=== PATIENT | female | born 1980 | race Caucasian/White ===

== ENCOUNTER 2017-08-24 03:10 | Inpatient (IN) | payer BC ==
[2017-08-24 04:38] LABS: BASOPHIL 0.9 % (0-2.0); EOSINOPHIL 0.7 % (0-4.5); MCH 25.2 pg (25.7-33.7); MCHC 32.8 g/dl (32.0-36.0); MEAN CELL VOLUME 76.6 fl (80-96); MEAN PLT VOLUME 11.1 fl (7.5-11.1); NEUTROPHILS 63.1 % (42.8-82.8); PLATELET COUNT 161 K/MM3 (134-434); RDW 15.4 % (11.6-15.6); WHITE BLOOD COUNT 7.9 K/mm3 (4.0-10.0)
[2017-08-24 04:43] VITALS: BMI 27.3
[2017-08-24 04:51] LABS: INR 0.89 (0.82-1.09); PROTHROMBIN TIME (PATIENT) 9.8 SEC (9.98-11.88)
[2017-08-24 04:58] LABS: ANION GAP 12 (8-16); CALCIUM 8.8 mg/dL (8.5-10.1); CO2 23 mmol/L (21-32); CREATININE 0.7 mg/dL (0.55-1.02); GLUCOSE,RANDOM 76 mg/dL (74-106)
[2017-08-24] MEDS ORDERED: DEXTROSE 5%-LACTATED RINGERS 1,000 ML IV ONE (06:12)
[2017-08-24] MEDS ORDERED: BUTORPHANOL TARTRATE 1 MG/ML VIAL IVPB ONE (06:30)
[2017-08-24] MEDS ORDERED: PROMETHAZINE HCL 25 MG/1 ML VIAL IVPB ONE (06:30)
[2017-08-24] MEDS: ELECTROLYTE-148 SOLN 1,000 ML IV SCH (08:30)
--- NOTE | 2017-08-24 08:41 | HP ---
Past Medical History - Primary Care Physician PCP:: Mor Hernández - Admission Chief Complaint: 37yo P1001 with at EGA 40w4d admitted with spontaneous labor. History of Present Illness: Painful contractions since 2am, no SROM, good FM, no VB AMA Multiple Sclerosis History Source: Patient, Medical Record Limitations to Obtaining History: No Limitations - Past Medical History BRANCH RETAIL EXECUTIVE: Yes: Multiple Sclerosis Cardiovascular: No: AFIB, Aneurysm, Aortic Insufficiency, Aortic Stenosis, CAD, CHF, Deep Vein Thrombosis, HTN, Hyperlipdemia, NC, Mitral Insufficiency, Mitral Stenosis, Murmur, Pulmonary Hypertension, Other Pulmonary: No: Asthma, Bronchitis, Cancer, COPD, O2 Dependent, Pneumonia, Previously Intubated, Pulmonary Embolus, Pulmonary Fibrosis, Sleep Apnea, Other Gastrointestinal: No: Ascites, Cancer, Constipation, Crohn's Disease, Diverticulitis, Diverticulosis, Esophageal Varices, Gastritis, GERD, GI Bleed, Hemorrhoids, Hiatal Hernia, Inflamatory Bowel Disease, Irritable Bowel Disease, Pancreatitis, Peptic Ulcer Disease, Ulcerative Colitis, Other Hepatobiliary: No: Cirrhosis, Cholelithiasis, Cholecystitis, Choledocholithiasis , Hepatitis A, Hepatitis B, Hepatitis C, Other Renal/: No: Renal Failure, Renal Inusuff, BPH, Cancer, Hematuria, Hemodialysis , Neurogenic Bladder, Renal Calculi, UTI, Other Reproductive: No: Ectopic , Endometriosis, Fibroids, PID, Polycystic Ovary Syndrome, Postmenopausal, Other ...: 4 ...Para: 1 () ...Term: 1 ...: 0 ...Spon : 2 ...Induced : 0 ...Multiple Gestation: 0 ...LMP: 11/13/16 ... Weeks Gestation by Dates: 40.4 ...EDC by Dates: 08/20/17 Heme/Onc: No: Anemia, B12 Deficiency, Bleeding Disorder, Cancer, Current Chemotherapy, Current Radiation Therapy, Hemochromatosis, Hypercoaguable State, Myeloproliferative Synd, Sickle Cell Disease, Sickle Cell Trait, Thrombocytopenia, Other Infectious Disease: No: AIDS, C-Diff, Herpes Zoster, HIV, MRSA, STD's, Tuberculosis, VREF, Other Psych: No: Addictions, Anxiety, Bipolar, Depression, Panic, Psychosis, Schizophrenia, Other Musculoskeletal: No: Bursitis, Chronic low back pain, Hemiparesis, Hemiplegia, Osteoarthritis, Paraplegia, Other Rheumatology: No: Fibromyalgia, Gout, Lupus, Rheumatoid Arthritis, Sarcoidosis, Vasculitis, Other ENT: No: Allergic Rhinitis, Sinusitis, Other Endocrine: No: [place]'s Disease, [place]'s Disease, Diabetes Insipidus, Diabetes Mellitus, Hyperparathyroidism, Hyperthyroidism, Hypothyroidism, Osteopenia, SIADH, Other Dermatology: No: Basal Cell, Cellulitis, Eczema, Melanoma, Psoriasis, Squamous Cell, Other - Past Surgical History Past Surgical History: Yes: None Hx Myomectomy: No Hx Transabdominal Cerclage: No - Smoking History Smoking history: Never smoked Have you smoked in the past 12 months: No - Alcohol/Substance Use Hx Alcohol Use: No History of Substance Use: reports: None - Social History Usual Living Arrangement: Yes: Alone ADL: Independent History of Recent Travel: No Home Medications - Allergies Allergies/Adverse Reactions: Allergies Allergy/AdvReac Type Severity Reaction Status Date / Time Penicillins Allergy Mild Rash Verified 08/24/17 05:26 - Home Medications Home Medications: Ambulatory Orders Vit #108/Iron/FA [ One Tablet] 1 tab PO DAILY 08/24/17 Family Disease History - Family Disease History Family History: Unremarkable Review of Systems - Review of Systems Constitutional: reports: Other (Labor, contractions) Eyes: reports: No Symptoms HENT: reports: No Symptoms Neck: reports: No Symptoms Cardiovascular: reports: No Symptoms Respiratory: reports: No Symptoms Gastrointestinal: reports: No Symptoms Genitourinary: reports: No Symptoms Breasts: reports: No Symptoms Reported Musculoskeletal: reports: No Symptoms Integumentary: reports: No Symptoms Neurological: reports: No Symptoms Endocrine: reports: No Symptoms Hematology/Lymphatic: reports: No Symptoms Psychiatric: reports: No Symptoms Pain Intensity: 7 Physical Exam - Maternity Vital Signs: Vital Signs Temperature 97.7 F 08/24/17 05:00 Pulse Rate 70 08/24/17 08:00 Respiratory Rate 20 08/24/17 08:00 Blood Pressure 137/75 08/24/17 08:00 O2 Sat by Pulse Oximetry (%) Constitutional: Yes: Well Nourished, No Distress, Calm Eyes: Yes: WNL, Conjunctiva Clear, EOM Intact HENT: Yes: WNL, Atraumatic, Normocephalic Neck: Yes: WNL, Supple, Trachea Midline Cardiovascular: Yes: WNL, Regular Rate and Rhythm Breast(s): Yes: WNL - Abdominal Exam/OB Fundal Height: 40 Number of Fetuses: Single Presentation: Vertex Contractions: Yes Regularity: Regular Intensity: Moderate Monitor Mode: External Heart Rate (range): 130 Heart Rate Location: Midline Category: I Accelerations: Non-Uniform Decelerations: None - Vaginal Exam/OB Vaginal Bleediing: No Speculum Exam: No Dilatation (cm): 5 Effacement (%): 70 Amniotic Membrane Status: Intact Station: -2 (Adequate gynecoid pelvimetry) - Physical Exam Musculoskeletal: Yes: WNL Extremities: Yes: WNL Edema: No Edema: LLE: Trace, RLE: Trace Integumentary: Yes: WNL Deep Tendon Reflex Grade: Normal +2 ...Motor Strength: WNL Psychiatric: Yes: WNL, Alert, Oriented - Labs Lab Results: CBC, BMP 08/24/17 04:00 08/24/17 04:00 Hemorrhage Risk Assessment - Risk Factors Medium Risk Factors: Yes: None High Risk Factors: Yes: None Risk Score: 1 Risk Level: Medium Risk Imaging - Results Ultrasound: Report Reviewed Assessment/Plan 37yo P1001 with at EGA 40w4d admitted with spontaneous labor. Fetus with category I tracing. Plan to monitor labor. The pt requested epidural. Anesthesia contacted. Anticipate .
[2017-08-24] MEDS: FENTANYL/BUPIVACAINE/NS/PF - PCEA - 50 ML DISP.SYRIN EP SCH (09:15)
[2017-08-24] MEDS ORDERED: ENOXAPARIN NA (PORCINE) 40 MG/0.4 ML DISP.SYRIN SQ SCH (10:00)
[2017-08-24] MEDS ORDERED: ACETAMINOPHEN 325 MG TABLET (FP) PO PRN (14:39)
[2017-08-24] MEDS ORDERED: oxyCODONE HCL 5 MG TABLET PO PRN (14:39)
[2017-08-24] MEDS ORDERED: BENZOCAINE 20% 57 GM BOTTLE TP PRN (14:39)
[2017-08-24] MEDS ORDERED: IBUPROFEN 600 MG TABLET (FP) PO PRN (14:39)
[2017-08-24] MEDS ORDERED: METHYLERGONOVINE MALEATE 0.2 MG/1 ML AMP IM PRN (14:39)
[2017-08-24] MEDS ORDERED: WITCH HAZEL 50% (TUCKS) 40 PAD/JAR PAD TP PRN (14:39)
[2017-08-24] MEDS ORDERED: BENZOCAINE 28 GM HEMORRHOIDAL OINTMENT TP PRN (14:39)
[2017-08-24] MEDS ORDERED: BISACODYL 10 MG SUPP.RECT RC PRN (14:39)
[2017-08-24] MEDS ORDERED: D5W-LR W/ 20 UNITS OXYTOCIN 1,000 ML IV SCH (14:45)
--- NOTE | 2017-08-25 00:03 | PN ---
Post Progress Note - Subjective Subjective: Patient without acute complaints. Reports tolerating oral intake without nausea or vomiting. Ambulating without dizziness. Denies fevers or chills. Pain well controlled with oral pain medication. without difficulty. Passing flatus. Post Day: 1 Type of Delivery: Vital Signs: Vital Signs Temperature 98.2 F 08/24/17 20:59 Pulse Rate 76 08/24/17 20:59 Respiratory Rate 18 08/24/17 20:59 Blood Pressure 108/62 08/24/17 20:59 O2 Sat by Pulse Oximetry (%) 100 08/24/17 13:30 Breast Exam: Yes: Engorged Uterus: Yes: Fundus Firm, Fundus below umbilicus Abdomen/GI: Yes: Abdomen soft, Passing flatus, Tolerating PO. No: Tender Lochia: Yes: Serosa Lochia, amount: Moderate Extremities: Yes: Calves non-tender, Edema (trace) Activity: Ambulating - Labs Labs: CBC WBC 7.9 K/mm3 (4.0-10.0) 08/24/17 04:00 RBC 4.29 M/mm3 (3.60-5.2) 08/24/17 04:00 Hgb 10.8 GM/dL (10.7-15.3) 08/24/17 04:00 Hct 32.9 % (32.4-45.2) 08/24/17 04:00 MCV 76.6 fl (80-96) L 08/24/17 04:00 MCH 25.2 pg (25.7-33.7) L 08/24/17 04:00 MCHC 32.8 g/dl (32.0-36.0) 08/24/17 04:00 RDW 15.4 % (11.6-15.6) 08/24/17 04:00 Plt Count 161 K/MM3 (134-434) 08/24/17 04:00 MPV 11.1 fl (7.5-11.1) 08/24/17 04:00 Neutrophils % 63.1 % (42.8-82.8) 08/24/17 04:00 Lymphocytes % 26.0 % (8-40) 08/24/17 04:00 Monocytes % 9.3 % (3.8-10.2) 08/24/17 04:00 Eosinophils % 0.7 % (0-4.5) 08/24/17 04:00 Basophils % 0.9 % (0-2.0) 08/24/17 04:00 Assessment/Plan 37 yo PPD # 1 s/p , afebrile, vital signs stable, doing well 1. Continue routine care. 2. AM CBC with mild anemia 3. Rh positive status, no rhogam indicated. 4. Encourage ambulation 5. Continue oral pain medication 6. Anticipate discharge home day #2
[2017-08-25 06:59] LABS: BASOPHIL 0.5 % (0-2.0); EOSINOPHIL 0.4 % (0-4.5); MCH 24.7 pg (25.7-33.7); MCHC 32.1 g/dl (32.0-36.0); PLATELET COUNT 139 K/MM3 (134-434); RDW 15.5 % (11.6-15.6); WHITE BLOOD COUNT 12.2 K/mm3 (4.0-10.0)
[2017-08-25] MEDS: ELECTROLYTE-148 SOLN 1,000 ML IV SCH (09:26)
[2017-08-25] MEDS: FENTANYL/BUPIVACAINE/NS/PF - PCEA - 50 ML DISP.SYRIN EP SCH (09:49)
[2017-08-25] MEDS ORDERED: SENNOSIDES/DOCUSATE COMBO (SENNA PLUS) TABLET (UD) PO PRN (22:00)
--- NOTE | 2017-08-26 07:50 | DS ---
Physical Exam-TOMOGRAPHIC TECH Vital Signs: Vital Signs Temperature 98.1 F 08/25/17 21:24 Pulse Rate 76 08/25/17 21:24 Respiratory Rate 18 08/25/17 21:24 Blood Pressure 116/74 08/25/17 21:24 O2 Sat by Pulse Oximetry (%) 98 08/25/17 09:00 Constitutional: Yes: Well Nourished, No Distress, Calm Eyes: Yes: WNL, Conjunctiva Clear, EOM Intact HENT: Yes: WNL, Atraumatic, Normocephalic Neck: Yes: WNL, Supple, Trachea Midline Cardiovascular: Yes: WNL, Regular Rate and Rhythm Respiratory: Yes: WNL, Regular, CTA Bilaterally Gastrointestinal: Yes: WNL ...Rectal Exam: Yes: WNL Renal/: Yes: WNL ....Post : Yes: Uterus firm, Uterus non-tender, Slight lochia rubra Breast(s): Yes: WNL Musculoskeletal: Yes: WNL Extremities: Yes: WNL Edema: No Integumentary: Yes: WNL Neurological: Yes: WNL, Alert, Oriented ...Motor Strength: WNL Psychiatric: Yes: WNL, Alert, Oriented Labs: CBC, BMP 08/25/17 06:35 08/24/17 04:00 Delivery - Delivery Type of Anesthesia: Local, Epidural Episiotomy/Laceration: Perineal Extension/lac, 2nd degree EBL (cc): 300 Delivery, Single - Stages of Labor Date 1st Stage Initiatied: 08/24/17 Time 1st Stage Initiated: 01:30 Date 2nd Stage Initiated: 08/24/17 Time 2nd Stage Initiated: 13:20 Date of Delivery: 08/24/17 Time of Delivery: 14:25 Time Placenta Delivered: 14:30 - Condition of Infant Shim Plug Cutter/Bistro Server Present: No Infant Gender: Male Weight: 7 lb 3 oz Position: OA Total Hours ROM (Hrs/Mins): 1hr 10min - 1 Minute Total Score: 9 5 Minutes Total Score: 9 - Feeding Plan Initial Plan: Exclusive throughout hospitalization Discharge Summary Reason For Visit: LABOR Procedures: Principal: Condition: Good - Instructions Diet, Activity, Other Instructions: regular diet, follow up office 4 weeks Referrals: Mor Hernández MD [Staff Physician] - Disposition: HOME - Home Medications Comprehensive Discharge Medication List: Ambulatory Orders Vit #108/Iron/FA [ One Tablet] 1 tab PO DAILY 08/24/17 Ibuprofen [Motrin -] 600 mg PO QID #28 tablet 08/26/17
[2017-08-26 08:49] VITALS: BP 127/75; PULSE 86; TEMP 97.8
--- NOTE | 2017-08-26 14:25 | PN ---
Delivery - Delivery Vaginal Delivery: No Problems, Spontaneous Type of Anesthesia: Local, Epidural Episiotomy/Laceration: Perineal Extension/lac, 2nd degree EBL (cc): 300 Delivery, Single - Stages of Labor Date 1st Stage Initiatied: 08/24/17 Time 1st Stage Initiated: 01:30 Date 2nd Stage Initiated: 08/24/17 Time 2nd Stage Initiated: 13:20 Date of Delivery: 08/24/17 Time of Delivery: 14:25 Time Placenta Delivered: 14:30 Placenta: Yes: Spontaneous, Normal Configuration - Condition of Obstetrics Scrub Nurse/Oracle Developer Present: No Gender: Male Weight: 3.26 kg Position: OA Total Hours ROM (Hrs/Mins): 1hr 10min - 1 Minute Total Score: 9 5 Minutes Total Score: 9 - [place] Feeding Plan Initial Plan: Exclusive throughout hospitalization Remarks - Remarks Remarks: Normal spontaneous delivery, w/o complications
== END 2017-08-26 14:30 | disposition home or self-care (01) | DRG 775 ==
LOC: JLDR 03:10 → J3N 20:20
PROVIDERS: ADMIT Obstetrics & Gynecology; ATTEND Obstetrics & Gynecology
PROC: 10E0XZZ Delivery of Products of Conception, External Approach (ICD-10-PCS; principal; 2017-08-24)
PROC: 0KQM0ZZ Repair Perineum Muscle, Open Approach (ICD-10-PCS; 2017-08-24)
PROC: 0W8NXZZ Division of Female Perineum, External Approach (ICD-10-PCS; 2017-08-24)
DX: O70.1 Second degree perineal laceration during delivery (principal); Z37.0 Single live birth; Z3A.40 40 weeks gestation of pregnancy
CPT/HCPCS: 36415; 59409; 80048; 85025; 85610; 85730; 86593; 86850; 86900; 86901

== ENCOUNTER 2022-04-28 04:21 | Day surgery (SDC) | payer BC, OTHER ==
[2022-04-27 10:06] VITALS: BMI 25.7
[2022-04-28] MEDS ORDERED: IBUPROFEN 400 MG TABLET (FP) PO PRN (12:08)
[2022-04-28] MEDS ORDERED: ACETAMINOPHEN 325 MG TABLET (FP) PO PRN (12:08)
[2022-04-28] MEDS ORDERED: oxyCODONE HCL 5 MG TABLET PO PRN ×2 (12:08→15:11)
[2022-04-28] MEDS ORDERED: FENTANYL CITRATE/PF 50 MCG/ML VIAL ONE ×2 (14:12)
[2022-04-28] MEDS ORDERED: MIDAZOLAM HCL 2 MG/2 ML SINGLE DOSE VIAL ONE (14:12)
[2022-04-28] MEDS ORDERED: ONDANSETRON 4 MG/2 ML VIAL IVPUSH PRN (15:11)
[2022-04-28] MEDS ORDERED: LACTATED RINGERS SOLUTION 1,000 ML IV SCH (15:15)
[2022-04-28 17:59] VITALS: BP 131/74; PULSE 82; TEMP 98.8
== END 2022-04-28 17:20 | disposition home or self-care (01) ==
LOC: JASU-SURG 04:21
PROVIDERS: ATTEND Obstetrics & Gynecology
PROC: 0UDB8ZX Extraction of Endometrium, Via Natural or Artificial Opening Endoscopic, Diagnostic (ICD-10-PCS; principal; 2022-04-28 13:00)
DX: N92.6 Irregular menstruation, unspecified (principal); R93.89 Abnormal findings on diagnostic imaging of other specified body structures
CPT/HCPCS: 88305-TC; 94760